=== PATIENT | male | born 1980 | race Caucasian/White ===

== ENCOUNTER 2018-08-12 14:57 | Emergency (ER) | payer OTHER ==
[~2018-08-12] VITALS: Ht 172.7 cm; Wt 99.8 kg
[2018-08-12] MEDS ORDERED: CLARITIN10 MG PO (19:03)
[2018-08-12] MEDS ORDERED: IBUPROFEN 200200 M1 PO (19:04)
[2018-08-12 19:12] LABS: URINE BILIRUBIN NEGATIVE (Negative); URINE BLOOD NEGATIVE (Negative); URINE CLARITY CLEAR; URINE COLOR YELLOW; URINE GLUCOSE-RANDOM* NEGATIVE (Negative); URINE KETONES NEGATIVE (Negative); URINE LEUKOCYTES-REFLEX NEGATIVE (Negative); URINE NITRITE-REFLEX NEGATIVE (Negative); URINE PROTEIN (DIPSTICK) TRACE (Negative); URINE SPECIFIC GRAVITY >= 1.030 (1.005-1.035)
[2018-08-12] MEDS ORDERED: MEDROLDOSEPACK PO (19:36)
[2018-08-12] MEDS ORDERED: SENNA-DOCUSATE1 EAC1 PO (19:36)
[2018-08-12] MEDS ORDERED: NORCO 5-325 TA1 EAC1 PO (19:36)
[2018-08-12 19:53] VITALS: BP 150/81
== END 2018-08-12 19:55 | disposition home or self-care (01) ==
LOC: ER 14:57
PROVIDERS: Emergency Medicine
DX: M54.31 Sciatica, right side (principal)